=== PATIENT | female | born 1985 | race African-American/Black ===

== ENCOUNTER 2025-02-05 10:54 | Emergency (ER) | payer OTHER ==
[2025-02-05] MEDS ORDERED: diphenhydrAMINE 50 MG/ML VIAL ONE (11:30)
[2025-02-05] MEDS ORDERED: Metoclopramide HCl 10 MG (2 mL) VIAL ONE (11:30)
[2025-02-05 11:51] LABS: #Basophils 0.03 10x3/uL (0.0-0.2); #Eosinophils 0.18 10x3/uL (0.0-0.5); #Monocytes 0.37 10x3/uL (0.0-1.1); #Neutrophils 4.32 10x3/uL (1.5-8.4); %Basophils 0.4 % (0.0-2.0); %Eosinophils 2.6 % (0.0-6.0); %Lymphocytes 28.0 % (18.0-47.0); %Monocytes 5.4 % (0.0-10.0); %Neutrophils 63.5 % (40.0-75.0); Hematocrit 35.7 % (34.9-44.5); Hemoglobin 10.4 g/dL (12.0-15.5); Mean Corpuscular Hemoglobin 24.0 pg (27.0-33.0); Mean Corpuscular Volume 82.3 fL (81.6-98.3); Platelet Count 301 10x3/uL (150-450); Red Blood Cell (RBC) Count 4.34 10x6/uL (3.90-5.03); White Blood Cell (WBC) Count 6.82 10x3/uL (3.5-10.5)
[2025-02-05 12:01] LABS: BHCG - Serum Negative (NEGATIVE); Pregs Control Background? CLEAR/WHITE (CLR/WHITE); Pregs Control Bar Appear? YES (CONTROL BAR)
[2025-02-05 12:06] LABS: ALT (SGPT) 8 U/L (Less than 34); AST (SGOT) 15 U/L (11-34); Albumin 3.5 g/dL (3.1-4.5); Alkaline Phosphatase 54 U/L (40-110); Anion Gap 10 mmol/L (10-20); BUN (Urea Nitrogen) 12 mg/dL (7.0-18.7); Bilirubin, Total 0.3 mg/dL (0.3-1.2); Calc. Creatinine Clearance 0 mL/min (70-130); Calcium 8.3 mg/dL (7.8-10.44); Carbon Dioxide 29 mmol/L (22-29); Chloride 107 mmol/L (98-107); Globulin 3.8 g/dL (2.4-3.5); Glucose 83 mg/dL (70-105); Potassium 4.0 mmol/L (3.5-5.1); Sodium 142 mmol/L (136-145)
[2025-02-05] MEDS ORDERED: Ketorolac Tromethamine 30 MG (1 mL) VIAL ONE (12:45)
[2025-02-05] MEDS ORDERED: Droperidol 5 MG/2 ML VIAL ONE (12:45)
== END 2025-02-05 16:09 | disposition home or self-care (01) ==
LOC: CSHERS 10:54
DX: R51.9 Headache, unspecified (principal); R29.700 NIHSS score 0; I50.9 Heart failure, unspecified
CPT/HCPCS: 70450; 80053; 83880; 84703; 85025; 93005; 96374; 96375; J1200; J1790; J1885; J2765